=== PATIENT | male | born 2005 | race Caucasian/White ===

== ENCOUNTER → 2024-04-21 14:20 | Outpatient (REF) | payer OTHER, SELFPAY | LOC: RAD 14:20 | PROVIDERS: ATTENDING PHYSICIAN Pediatrics Pediatric Nephrology; FAMILY PHYSICIAN Family Medicine | DX: Q61.3 Polycystic kidney, unspecified (principal) | CPT/HCPCS: 76770 ==

== ENCOUNTER → 2024-09-17 17:25 | Outpatient (REF) | payer OTHER, SELFPAY | LOC: RAD 17:25 | PROVIDERS: ATTENDING PHYSICIAN Physician Assistant Medical | DX: G89.29 Other chronic pain (principal); M54.50 Low back pain, unspecified | CPT/HCPCS: 72110 ==

== ENCOUNTER → 2024-10-02 17:03 | Outpatient (REF) | payer OTHER, SELFPAY | LOC: RAD 17:03 | PROVIDERS: ATTENDING PHYSICIAN Physician Assistant Medical; PRIMARYCARE PHYSICIAN Family Medicine | DX: N50.89 Other specified disorders of the male genital organs (principal) | CPT/HCPCS: 76870; 93976 ==